=== PATIENT | female | born 1950 | race Caucasian/White ===

== ENCOUNTER 2024-08-25 13:07 | Outpatient (CLI) | payer MEDICARE, OTHER ==
[~2024-08-25 13:07] MED LIST: barium sulfate 340gm for oral suspension 1 BOTTLE SUSP.RECON PO ONE
== END 2024-08-25 23:59 | disposition home or self-care (01) ==
LOC: RAD 13:07
PROVIDERS: ATTEND Internal Medicine
DX: R13.10 Dysphagia, unspecified (principal)
CPT/HCPCS: 74220

== ENCOUNTER 2025-03-22 10:16 | Outpatient (CLI) | payer MEDICARE, OTHER ==
--- NOTE | 2025-03-23 04:17 | CONSULTATION ---
DATE OF CONSULTATION: 03/22/2025 DICTATING PHYSICIAN: Maureen Polo M.S., [facility] MODIFIED BARIUM SWALLOW STUDY REPORT REFERRING PHYSICIAN: Librado Moffett. HISTORY OF PRESENT ILLNESS: The patient is a 74-year-old female and consents to this evaluation. In history obtained from the patient and medical records, the patient reports symptoms of dysphagia including feeling as if food items get stuck in her throat. She notes that this has been occurring for years and has been about the same in severity over the past several years. The patient notes food items such as nuts especially get stuck. She reports that she has mostly soggier foods to eat due to a combination of difficulty with mastication due to her jaw alignment and her difficulty with swallowing. The patient was seen for an esophagram in the past with no abnormalities. CURRENT DIET: In terms of caffeine, the patient has a few sips of Dr. Moreno during the day that she takes with her pills but she does not have the entire can. She does not utilize tobacco products or drink alcohol. She rarely consumes chocolate. The patient reports that she has been no longer eating cheese as of recently because she was getting sick every time that she ate it but she does continue to have cottage cheese. The patient reports that she does not eat at a specific time of the day because she has nausea and diarrhea. She reports that it occurs for most of the day and then she has a few hours window where she is not experiencing either of these symptoms and then that is when she eats; however, there is never a set or regular time that this occurs. Some of the things that she typically consumes include [employer] gluten-free burritos and Kelly Marichuy[employer] Teriyaki Bowls as well as cottage cheese and yogurt. MEDICATIONS: Hydrocodone-acetaminophen 10/325 mg every 4 hours as needed, Allergy 25 mg capsule 1 capsule at bedtime orally as needed, antidiarrheal 2 mg tablet 1 tablet as needed orally 4 times a day, Biofreeze roll-on 4% gel 1 application as needed externally 3 times daily, metoprolol tartrate 25 mg 1 tablet orally twice daily, cyclobenzaprine HCL 10 mg once daily orally, Celecoxib 200 mg 1 capsule once daily orally. PARAMETERS: The patient is seated in a lateral 90-degree view and administered the usual protocol of thin and nectar thick liquids, puree and solid consistencies, as well as self-regulated boluses of thin liquids from a cup. RESULTS: In the oral stage of the swallow, lingual strength was within functional limits. There was no oral residue noted after the tail at the bolus passed. In the pharyngeal stage of the swallow, tongue-based retraction is mild to moderately reduced. Swallow initiation is within functional limits. Anterior movement of the posterior pharyngeal wall is observed. Elevation of the hyothyroid complex is accomplished with full range of motion for epiglottic inversion and anterior and superior movement of the hyoid. There is a mild to moderate pharyngeal residue residing at the level of the tongue base and vallecula following the initial swallow of boluses. PES opening is within functional limits. In terms of airway safety, at no time is the patient noted to penetrate or aspirate on any of the bolus sizes or consistencies. ANTERIOR, POSTERIOR VIEW: In the AP plane, the bolus split symmetrically between the piriform sinuses. As the bolus would travel through the esophagus, there was an area at about the level of the mid sternum where a small amount of the bolus would catch for a period of time and become from the rest of the bolus but then it would end up traveling down through the esophagus. 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 DIAGNOSES: R13.12, dysphagia oropharyngeal phase; R47.02, dysphasia. PATIENT EDUCATION: Immediately following modified barium swallow study, the patient was able to view the results. Normal anatomy of the swallowing mechanism was revealed. The patient was able to see how the current status of the swallowing mechanism decreases her ability to swallow normally. She was educated on a recommendation for Speech Therapy Services to strengthen the tongue base and agreed to participate at this time. She was also educated on an effortful swallow exercise to complete until her scheduled appointment on . RECOMMENDATIONS: When it is recommended that the patient receive swallowing therapy 1 time weekly for 12 weeks to improve the strength as well as optimum safety and efficiency of swallow function on p.o. intake without overt signs and symptoms of aspiration for the highest possible diet level. PROGNOSIS: Prognosis for the patient is good in terms of patient motivation and willingness to learn. FUNCTIONAL ORAL INTAKE: The FOIS was administered to establish and document the change in the functional eating activities of this patient over time. This is a 7-point scale with 1 indicating no oral intake and totally tube dependent, and 7 indicating total oral intake with no restrictions. This patient received a 6, which indicates she has a total oral diet with multiple consistencies without special preparation but with specific food limitations and precautions. G-CODE: [id number]. Thank you very much for asking me to participate in the care of this kind patient. Should you have any questions regarding this evaluation or recommendations, please do not hesitate to contact me at [phone]. During this examination, 2.35 minutes of fluoroscopy time and 19.14 CAK mGy were utilized. Maureen Polo M.S., [facility] TID: [id number] RECEIPT: [id number] FRANCESCA/MELISSA FRASER
== END 2025-03-22 23:59 | disposition home or self-care (01) ==
LOC: RAD 10:16
PROVIDERS: ATTEND Internal Medicine
DX: R13.12 Dysphagia, oropharyngeal phase (principal); R47.02 Dysphasia
CPT/HCPCS: 74230